=== PATIENT | male | born 1975 | race Caucasian/White ===

== ENCOUNTER 2024-01-22 05:14 | Observation (INO) ==
[2024-01-22] MEDS ORDERED: IOPAMIDOL 100 ML BOTTLE IV ONE (05:15)
[2024-01-22 05:58] LABS: Basophils # (Auto) 0.03 K/mcL (0.00-0.30); Basophils % (Auto) 0.4 % (0.0-2.0); Eosinophils # (Auto) 0.13 K/mcL (0.00-0.70); Eosinophils % (Auto) 1.5 % (0.0-7.0); Hematocrit 44.8 % (40.1-51.0); Hemoglobin 15.5 g/dL (13.7-17.5); Lymphocytes # (Auto) 1.52 K/mcL (1.50-4.80); Lymphocytes % (Auto) 18.1 % (15.5-49.0); Mean Cell Volume 96.8 fL (80.0-100.0); Mean Corpuscular HGB Conc 34.6 g/dL (31.0-36.0); Mean Platelet Volume 10.3 fL (8.8-12.5); Monocytes % (Auto) 10.7 % (1.0-12.0); Neutrophils % (Auto) 69.2 % (38.0-78.0); Platelet Count 260 K/mcL (140-440); RBC 4.63 M/mcL (4.63-6.08); Red Cell Distribution Width 11.8 % (11.5-14.5); WBC 8.4 K/mcL (4.5-11.0)
[2024-01-22 06:30] LABS: Blood Urea Nitrogen 11 mg/dL (6-20); Calcium 9.3 mg/dL (8.6-10.4); Carbon Dioxide 23 mmol/L (22-30); Chloride 101 mmol/L (96-108); Glomerular Filtration Rate 101; Glucose 122 mg/dL (70-105); Potassium 4.5 mmol/L (3.3-5.1); Sodium 136 mmol/L (133-145)
[2024-01-22] MEDS: morphine 2 MG/ML VIAL IV ONE (06:58)
[2024-01-22] MEDS: ONDANSETRON 4 MG/2 ML VIAL IV ONE (06:59)
[2024-01-22 07:09] LABS: Prothrombin Time 13.4 sec (11.9-14.5)
[2024-01-22] MEDS: morphine 4 MG/ML VIAL IV ONE (07:35)
[2024-01-22] MEDS ORDERED: ONDANSETRON 4 MG/2 ML VIAL IV PRN (08:04)
[2024-01-22] MEDS: HYDROmorphone 0.5 MG/0.5 ML SYRINGE IV PRN (09:31)
[2024-01-22] MEDS: DEXTROSE 5%-NS 1,000 ML IV SCH (10:37)
[2024-01-22] MEDS ORDERED: PROPOFOL 200 MG/20 ML VIAL IV ONE (13:55)
[2024-01-22] MEDS ORDERED: KETAMINE 50 MG/ML ML ONE (13:56)
[2024-01-22] MEDS ORDERED: ONDANSETRON 4 MG/2 ML VIAL ONE (13:57)
[2024-01-22] MEDS ORDERED: LIDOCAINE 2% PF 5 ML VIAL ONE (13:57)
[2024-01-22] MEDS ORDERED: DEXAMETHASONE 10 MG/ML VIAL ONE (13:57)
[2024-01-22] MEDS ORDERED: fentaNYL 100 MCG/2 ML VIAL ONE (14:47)
[2024-01-22] MEDS ORDERED: GLYCOPYRROLATE 0.2 MG/ML VIAL IV ONE ×2 (14:54)
[2024-01-22] MEDS: ceFAZolin 2 GM in DEXTROSE 5% IN WATER 50 ML IV SCH (14:55)
[2024-01-22] MEDS ORDERED: IPRATROPIUM/ALBUTEROL 3 ML AMPUL.NEB NEB PRN (15:21)
[2024-01-22] MEDS ORDERED: fentaNYL 100 MCG/2 ML VIAL IV PRN (15:21)
[2024-01-22] MEDS: ACETAMINOPHEN 650 MG/65 ML BAG IV PRN (16:40)
[2024-01-22] MEDS: HYDROcodone/APAP 5/325MG TABLET PO PRN (19:31)
[2024-01-22] MEDS: PIPERACILLIN SODIUM/TAZOBACTAM 3.375 GM in DEXTROSE 5% IN WATER 50 ML IV SCH (22:25)
[2024-01-23] MEDS: DEXTROSE 5%-NS 1,000 ML IV SCH (02:19)
[2024-01-23] MEDS: PIPERACILLIN SODIUM/TAZOBACTAM 3.375 GM in DEXTROSE 5% IN WATER 100 ML IV SCH (05:02)
[2024-01-23] MEDS: LACTATED RINGERS 1,000 ML IV SCH (06:56)
== END 2024-01-23 15:05 | disposition home or self-care (01) ==
LOC: MEDSUR 05:14 → ED 05:14 → MEDSUR 09:00
PROVIDERS: ADMIT Surgery Surgical Critical Care; ATTEND Surgery Surgical Critical Care